=== PATIENT | female | born 1975 | race Hispanic/Latino ===

== ENCOUNTER 2022-03-13 10:33 | Observation (INO) | payer BC ==
[2022-03-11 13:47] LABS: BASOPHILS # (AUTO) 0.1 (0.0-0.1); BASOPHILS % 0.7 % (0.0-1.0); EOSINOPHILS # (AUTO) 0.2 (0.0-0.4); EOSINOPHILS % 1.9 % (0.0-6.0); HEMATOCRIT 47.8 % (34.2-44.1); HEMOGLOBIN 14.4 g/dL (12.0-16.0); LYMPHOCYTES # (AUTO) 2.7 (1.0-3.2); MEAN CORPUSCULAR HEMOGLOBIN 25.7 pg (28-32); MEAN CORPUSCULAR HGB CONC 30.1 g/dL (31-35); MEAN CORPUSCULAR VOLUME 85.4 fL (81-99); MONOCYTES # (AUTO) 0.5 (0.2-0.8); MONOCYTES % 5.2 % (4.4-11.3); NEUTROPHILS # (AUTO) 6.8 (2.1-6.9); NEUTROPHILS % 65.8 % (38.7-80.0); PLATELET COUNT 470 x10e3/uL (140-360); RED CELL DISTRIBUTION WIDTH 15.7 % (11.7-14.4)
[2022-03-11 14:13] LABS: ALANINE AMINOTRANSFERASE 13 IU/L (0-55); ALBUMIN 4.8 g/dL (3.5-5.0); ALBUMIN/GLOBULIN RATIO 1.3 (0.8-2.0); ALKALINE PHOSPHATASE 61 IU/L (40-150); ANION GAP 16.6 mmol/L (8-16); BLOOD UREA NITROGEN 14 mg/dL (7-26); BUN/CREATININE RATIO 17 (6-25); CALCIUM 10.1 mg/dL (8.4-10.2); CARBON DIOXIDE 23 mmol/L (22-29); CHLORIDE 105 mmol/L (98-107); CREATININE, SERUM 0.81 mg/dL (0.57-1.11); GLUCOSE 160 mg/dL (74-118); POTASSIUM 3.6 mmol/L (3.5-5.1); SODIUM 141 mmol/L (136-145)
[~2022-03-13 10:33] MED LIST: BUSPIRONE HCL10 MG PO; CRESTOR10 MG PO; HYDROCHLOROTHIA25 MG PO; LISINOPRIL5 MG PO; SERTRALINE HCL50 MG PO; SYNJARDY 12.5-1 EACH; TIZANIDINE HCL4 M1 PO; VITAMIN D PO
[2022-03-13] MEDS ORDERED: CEFAZOLIN SODIUM 2 GM ONE (11:36)
[2022-03-13 11:57] LABS: CLARITY,URINE SL CLOUDY (CLEAR); COLOR,URINE YELLOW (YELLOW); KETONES,URINE TRACE (NEGATIVE); LEUKOCYTE ESTERASE ,URINE NEGATIVE (NEGATIVE); NITRITE,URINE NEGATIVE (NEGATIVE); PROTEIN,URINE DIPSTICK TRACE (NEGATIVE); URINE UROBILINOGEN 0.2 mg/dL (0.2 - 1)
[2022-03-13] MEDS ORDERED: DEXMEDETOMIDINE HCL 2 ML ONE (12:22)
[2022-03-13] MEDS ORDERED: NEOSTIGMINE 1 MG/ML 10ML VIAL ONE (12:41)
[2022-03-13] MEDS ORDERED: ONDANSETRON HCL INJ 2MG/ML 2ML 2 MG/ML VIAL ONE (12:41)
[2022-03-13] MEDS ORDERED: FAMOTIDINE 20 MG/2 ML VIAL IV ONE (12:41)
[2022-03-13] MEDS ORDERED: PHENYLEPHRINE HCL 1% 10 MG/ML VIAL ONE (12:41)
[2022-03-13] MEDS ORDERED: LIDOCAINE HCL 2% LOCAL INJ 5 ML SDV VIAL INJ ONE (12:41)
[2022-03-13] MEDS ORDERED: POVIDONE IODINE 0.05% 0.05 % ML PO ONE (12:41)
[2022-03-13] MEDS ORDERED: PROPOFOL IV EMULSION 10 MG/ML 20 ML VIAL ONE (12:41)
[2022-03-13] MEDS ORDERED: ROCURONIUM BROMIDE 10 MG/ML 5ML VIAL IV ONE (12:41)
[2022-03-13] MEDS ORDERED: DEXAMETHASONE SOD PHOS INJ 4 MG/ML SDV ONE (12:41)
[2022-03-13] MEDS ORDERED: GLYCOPYRROLATE INJ 0.2 MG/ML VIAL ONE (12:41)
[2022-03-13] MEDS ORDERED: BUPIVACAINE 0.5%/EPI 30 ML SDV INJ ONE (12:46)
[2022-03-13] MEDS ORDERED: PROMETHAZINE HCL (IM) 25 MG/ML VIAL IM ONE (13:36)
[2022-03-13] MEDS ORDERED: MIDAZOLAM HCL 2 MG/2 ML VIAL ONE (13:51)
[2022-03-13] MEDS ORDERED: FENTANYL CITRATE/PF 100MCG/2 ML INJ ONE (13:51)
[2022-03-13] MEDS ORDERED: INSULIN REGULAR, HUMAN 100 UNIT/1 ML ONE (15:48)
[2022-03-13] MEDS ORDERED: BISACODYL 10 MG SUPP PR PRN (16:00)
[2022-03-13] MEDS ORDERED: DIPHENHYDRAMINE HCL 25 MG CAP PO PRN (16:00)
[2022-03-13] MEDS ORDERED: DOCUSATE SODIUM 100 MG CAP PO PRN (16:00)
[2022-03-13] MEDS ORDERED: ACETAMINOPHEN 325 MG TAB PO PRN (16:00)
[2022-03-13] MEDS ORDERED: ONDANSETRON HCL INJ 2MG/ML 2ML 2 MG/ML VIAL IV PRN (16:00)
[2022-03-13] MEDS ORDERED: Morphine 4mg INJECTION 4 MG/ML INJ IM PRN (16:00)
[2022-03-13] MEDS: SIMETHICONE 80 MG CHEW PO SCH ×2 (18:00→21:04)
[2022-03-13] MEDS: LACTATED RINGER'S 1,000 ML IV SCH (18:15)
[2022-03-13] MEDS: KETOROLAC TROMETHAMINE 30 MG/ML VIAL IV SCH (18:15)
[2022-03-13 20:05] VITALS: BP 130/90
[2022-03-13] MEDS: BUSPIRONE HCL 10 MG TABLET PO SCH (20:56)
[2022-03-13] MEDS ORDERED: TIZANIDINE HCL 4 MG TAB PO SCH (21:00)
[2022-03-13] MEDS: METFORMIN PO SCH (21:04)
[2022-03-13] MEDS: EMPAGLIFLOZIN PO SCH (21:04)
[2022-03-14] MEDS: KETOROLAC TROMETHAMINE 30 MG/ML VIAL IV SCH ×2 (00:21→06:57)
[2022-03-14 00:56] VITALS: BP 130/90
[2022-03-14] MEDS: LACTATED RINGER'S 1,000 ML IV SCH (04:47)
[2022-03-14 07:09] LABS: BASOPHILS % 0.3 % (0.0-1.0); EOSINOPHILS # (AUTO) 0.1 (0.0-0.4); EOSINOPHILS % 0.5 % (0.0-6.0); HEMATOCRIT 35.1 % (34.2-44.1); HEMOGLOBIN 10.6 g/dL (12.0-16.0); LYMPHOCYTES # (AUTO) 3.1 (1.0-3.2); LYMPHOCYTES % 29.6 % (18.0-39.1); MEAN CORPUSCULAR HEMOGLOBIN 25.9 pg (28-32); MEAN CORPUSCULAR HGB CONC 30.2 g/dL (31-35); MEAN CORPUSCULAR VOLUME 85.6 fL (81-99); MONOCYTES # (AUTO) 0.8 (0.2-0.8); MONOCYTES % 7.3 % (4.4-11.3); NEUTROPHILS # (AUTO) 6.4 (2.1-6.9); NEUTROPHILS % 61.8 % (38.7-80.0); PLATELET COUNT 340 x10e3/uL (140-360)
[2022-03-14 07:29] LABS: ANION GAP 14.5 mmol/L (8-16); CREATININE, SERUM 0.74 mg/dL (0.57-1.11); POTASSIUM 3.5 mmol/L (3.5-5.1)
[2022-03-14 07:44] VITALS: BP 112/58
[2022-03-14] MEDS: METFORMIN PO SCH (08:00)
[2022-03-14] MEDS: EMPAGLIFLOZIN PO SCH (08:00)
[2022-03-14 08:19] VITALS: BP 112/58
[2022-03-14] MEDS ORDERED: SIMVASTATIN 40 MG TAB PO SCH (09:00)
[2022-03-14] MEDS ORDERED: LISINOPRIL 2.5 MG TAB PO SCH (09:00)
[2022-03-14] MEDS ORDERED: SERTRALINE HCL 50 MG TAB PO SCH (09:00)
[2022-03-14] MEDS ORDERED: HYDROCHLOROTHIAZIDE 25 MG TAB PO SCH (09:00)
[2022-03-14] MEDS: BUSPIRONE HCL 10 MG TABLET PO SCH (09:05)
[2022-03-14] MEDS: SIMETHICONE 80 MG CHEW PO SCH (09:06)
== END 2022-03-14 11:08 | disposition home or self-care (01) ==
LOC: OR 10:33 → PACU V 16:04 → MED/SURG3 17:44
PROVIDERS: ADMIT Obstetrics & Gynecology; ATTEND Obstetrics & Gynecology
DX: D25.2 Subserosal leiomyoma of uterus (principal); N93.9 Abnormal uterine and vaginal bleeding, unspecified; N80.00 Endometriosis of the uterus, unspecified; D26.1 Other benign neoplasm of corpus uteri; Z20.822 Contact with and (suspected) exposure to COVID-19; Z01.818 Encounter for other preprocedural examination
CPT/HCPCS: 0223U; 36415 ×3; 58571; 80048; 80053; 81003; 82948 ×2; 84702; 85025 ×2; 86850; 86900; 88307; 93005; 94799 ×2; C1713; G0378 ×2; J0690 ×2; J1100; J1885 ×2; J2001; J2250; J2370; J2405 ×2; J2550; J2704; J2710; J3010; J7050 ×2; J7121; J1817

== ENCOUNTER 2024-06-27 23:31 | Emergency (ER) | payer BC ==
[~2024-06-27] VITALS: Ht 157.5 cm; Wt 98.0 kg
[2024-06-27 23:47] VITALS: TEMP 98.8
[2024-06-28 00:01] LABS: BASOPHILS # (AUTO) 0.1 (0.0-0.1); BASOPHILS % 0.7 % (0.0-1.0); EOSINOPHILS # (AUTO) 0.1 (0.0-0.4); EOSINOPHILS % 1.1 % (0.0-6.0); HEMATOCRIT 44.1 % (34.2-44.1); HEMOGLOBIN 14.3 g/dL (12.0-16.0); LYMPHOCYTES # (AUTO) 2.7 (1.0-3.2); LYMPHOCYTES % 23.3 % (18.0-39.1); MEAN CORPUSCULAR HEMOGLOBIN 26.1 pg (28-32); MEAN CORPUSCULAR HGB CONC 32.4 g/dL (31-35); MEAN CORPUSCULAR VOLUME 80.6 fL (81-99); MONOCYTES # (AUTO) 0.7 (0.2-0.8); MONOCYTES % 6.4 % (4.4-11.3); NEUTROPHILS # (AUTO) 7.8 (2.1-6.9); NEUTROPHILS % 68.1 % (38.7-80.0); PLATELET COUNT 383 x10e3/uL (140-360); RED BLOOD COUNT 5.47 x10e6/uL (3.6-5.1); RED CELL DISTRIBUTION WIDTH 15.5 % (11.7-14.4); WHITE BLOOD COUNT 11.44 x10e3/uL (4.8-10.8)
[2024-06-28 00:08] LABS: INR 0.96; PROTHROMBIN TIME 13.4 seconds (11.9-14.5)
[2024-06-28] MEDS: MECLIZINE HCL 12.5 MG TAB PO ONE (00:08)
[2024-06-28] MEDS: SODIUM CHLORIDE 0.9% 1000ML 1,000 ML IV ONE (00:08)
[2024-06-28 00:09] LABS: PARTIAL THROMBOPLASTIN TIME 27.2 seconds (23.8-35.5)
[2024-06-28 00:18] LABS: ALBUMIN 4.5 g/dL (3.5-5.0); ALBUMIN/GLOBULIN RATIO 1.3 (0.8-2.0); ANION GAP 17.8 mmol/L (8-16); BILIRUBIN,TOTAL 0.6 mg/dL (0.2-1.2); CREATININE, SERUM 0.84 mg/dL (0.57-1.11); TOTAL PROTEIN 8.1 g/dL (6.5-8.1)
[2024-06-28 00:27] LABS: CALCIUM 9.4 mg/dL (8.4-10.2); POTASSIUM 2.8 mmol/L (3.5-5.1)
[2024-06-28] MEDS: POTASSIUM CHLORIDE 20MEQ/100ML 100 ML IV ONE (00:44)
[2024-06-28] MEDS: ONDANSETRON HCL INJ 2MG/ML 2ML 2 MG/ML VIAL IV STA (00:53)
[2024-06-28] MEDS: KCL 20 MEQ PACKET/ ORAL SOLN NG ONE (00:54)
[2024-06-28] MEDS: POTASSIUM CHLORIDE 20 MEQ TAB CR PO STA (01:29)
[2024-06-28 02:15] VITALS: PULSE 83; RESP 17
[2024-06-28 03:01] VITALS: BP 131/79; PULSE 87; RESP 18; TEMP 98.2; O2SAT 97
== END 2024-06-28 02:57 | disposition home or self-care (01) ==
LOC: ER 23:34
DX: R42 Dizziness and giddiness (principal); E87.6 Hypokalemia; E11.65 Type 2 diabetes mellitus with hyperglycemia; F41.9 Anxiety disorder, unspecified; R94.31 Abnormal electrocardiogram [ECG] [EKG]
CPT/HCPCS: 36415; 70450; 80053; 82948; 84484; 85025; 85610; 85730; 93005; 99284; J2405; J3480; J7030; J8597